=== PATIENT | female | born 1985 | race American Indian/Alaskan Native ===

== ENCOUNTER 2017-01-21 09:27 | Outpatient (CLI) | payer OTHER ==
--- NOTE | 2017-01-21 14:45 | Ultrasound Report ---
Sonohysterogram History: Dysfunctional uterine bleeding. Procedure and findings: A vaginal speculum was introduced and a small caliber catheter was advanced into the endometrial cavity after prepping the cervical os with sterile solution. During real-time observation, approximately 15 cc of sterile bacteriostatic water was injected. There are at least 2 endometrial polyps, the largest of which measures 1.4 CM in diameter. A second smaller polyp measures 5 mm in diameter. There is irregularity of the endometrial lining and a smaller polyps cannot be excluded. Impression: Multiple endometrial polyps.
== END 2017-01-21 09:28 | disposition home or self-care (01) ==
LOC: US 09:27
PROVIDERS: ATTEND Specialist
DX: N84.0 Polyp of corpus uteri (principal); N93.9 Abnormal uterine and vaginal bleeding, unspecified
CPT/HCPCS: 58340; 76831; 81025